=== PATIENT | male | born 1955 | race Caucasian/White ===

== ENCOUNTER 2017-07-22 13:46 | Inpatient (IN) | payer MEDICARE, BC ==
[2017-07-22] MEDS ORDERED: Zolpidem Tartrate 5 MG TAB PO PRN (17:52)
[2017-07-22] MEDS ORDERED: Nitroglycerin 0.4 MG TAB (25 Tab Bottle) SL PRN (17:52)
[2017-07-22] MEDS ORDERED: Dextrose 5% in Water 1,000 ML IV PRN (17:53)
[2017-07-22] MEDS ORDERED: Dextrose 50% Abboject 50 ML SYRINGE SLOW IVP PRN (17:53)
[2017-07-22] MEDS: Mometasone/Formoterol 60 PUFF AER INH SCH (18:36)
[2017-07-22] MEDS: Carvedilol 25 MG TAB PO SCH (20:45)
[2017-07-22] MEDS: Atorvastatin Calcium 40 MG TAB PO SCH (20:45)
[2017-07-22] MEDS: Lisinopril 5 MG TAB PO SCH (20:46)
[2017-07-22] MEDS: Polyethylene Glycol 3350 17 GM Packet PO SCH (20:46)
[2017-07-22] MEDS ORDERED: LISINOPRIL 2.5 MG PO SCH (21:00)
--- NOTE | 2017-07-23 00:12 | HP ---
DATE OF ADMISSION: 07/22/2017 CHIEF COMPLAINT: Improving acute on chronic systolic congestive heart failure for physical therapy. BRIEF HISTORY: This is a very pleasant overweight 61-year-old male, who was admitted to [facility] on 07/09/2017 with worsening shortness of breath and was diagnosed with acute on chronic congestive heart failure. He was started on IV diuretic therapy and has lost almost 50 poun ds. He is doing better, but is weak so he has been transferred here for therapy. He denies any ayesha st pain. He does have some dyspnea on exertion. He denies any fever or chills. He does have sleep apnea and does use his CPAP at night. Denies any nausea, vomiting or diarrhea. He is tolerating h is medications. PAST MEDICAL HISTORY: 1. Chronic systolic congestive heart failure. He states that his ejection fraction was 15% to 20% per Dr. Ruiz this visit. 2. Coronary artery disease. 3. Diabetes mellitus, type 2. 4. Hypertension. 5. Dyslipidemia. 6. Chronic obstructive pulmonary disease. 7. Morbid obesity. 8. Obstructive sleep apnea. 9. Gastroesophageal reflux disease. PAST SURGICAL HISTORY: 1. Coronary artery bypass grafting. 2. AICD placement. 3. Ankle surgery and hand surgery. ALLERGIES: No known drug allergies, but does have a problem in tolerating CARDURA. MEDICATIONS: He is being transferred here on the following medications: 1. Tylenol 500 mg q.6 hours p.r.n. 2. DuoNeb 3 mL q.6 hours routine. 3. Lipitor 80 mg daily. 4. Carvedilol 25 mg b.i.d. 5. Plavix 75 mg daily. 6. Lasix 40 mg daily. 7. Amaryl 4 mg daily. 8. Hydralazine 25 mg t.i.d. 9. Lactulose 60 mg t.i.d. p.r.n. constipation. 10. Dulera two puffs b.i.d., gargle after use. 11. Lisinopril 2.5 b.i.d. 12. Xarelto 15 mg daily. 13. Protonix 40 mg daily. 14. Aldactone 50 mg daily. 15. Ambien 5 mg at bedtime p.r.n. FAMILY HISTORY: Noncontributory to current admission. PSYCHOSOCIAL HISTORY: History of tobacco abuse. No alcohol or IV drug abuse. 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 REVIEW OF SYSTEMS: Cardiovascular system: Does complain of some dyspnea on exertion. He denies an y paroxysmal nocturnal dyspnea or orthopnea at present. Denies any chest pain or shortness of breat h. Respiratory system: Denies any chronic cough, expectoration or pleuritic type chest pain. Marissa rointestinal system: Denies any nausea, vomiting, diarrhea, constipation, hematemesis, melena, keara tochezia. Genitourinary system: Denies any frequency, urgency, dysuria or hematuria. Central nerv ous system: Generalized weakness. SHEENT: No difficulty with speech, vision, hearing or swallowin g. PHYSICAL EXAMINATION: GENERAL: Pleasant 61-year-old overweight male, resting comfortably, in no acute distress. He responds appropriately to questions. He is alert, awake, and oriented x3. VITAL SIGNS: He is afebrile. Heart rate is 70, respirations are 20, oxygen saturation is 95% on 2 liters, blood pressure is 110/72. HEENT: Normocephalic, atraumatic. Pupils are equally reactive to light and accommodation. NECK: No JVD, thyromegaly, cervical adenopathy, throat exudates or carotid bruits. CARDIOVASCULAR: S1 and S2 plus. Rate and rhythm regular. RESPIRATORY: Normal vesicular breath sounds heard in all lung lutz with decreased air entry at th e bases. ABDOMEN: Soft, obese, nontender, bowel sounds heard in all quadrants. EXTREMITIES: Trace pedal edema. Peripheral pulses are palpable. CENTRAL NERVOUS SYSTEM: Generalized weakness, otherwise nonfocal. LABORATORY VALUES: Sodium 138, potassium 4.4, BUN and creatinine are 29 and 1.41, blood sugars are 205, 206, 187, 171, 219. IMPRESSION: 1. Improving acute on chronic systolic congestive heart failure. 2. Ischemic cardiomyopathy, last ejection fraction according to the notes is 20% to 25%. Patient s tates that Dr. Ruiz told him it was 15%. 3. Coronary artery disease. 4. Hypertension. 5. Dyslipidemia. 6. Obstructive sleep apnea. 7. Morbid obesity. 8. Chronic kidney disease, stage 2. PLAN: 1. Continue current medications. 2. An 1800 calorie heart healthy ADA diet. 3. Accu-Cheks with sliding scale coverage. 4. Deep venous thrombosis prophylaxis. He is already on Xarelto 15 mg daily, which is an unusual d ose, but that is what he was on in the other facility as well. 5. Stress ulcer prophylaxis. 6. Decubitus precautions. 7. Consult PT and OT. 8. Routine laboratory values. 9. DNR status per patient's request. 10. No family at the bedside. 11. We will continue to follow this patient while he is here. 12. Estimated length of stay 10-14 days.
[2017-07-23 05:20] LABS: Band 1 % (5-11); Hemoglobin 16.4 g/dL (14.0-18.0); Lymphocytes 10 % (21-51); MDiff Complete? YES; Mean Corpuscular HGB CONC 31.6 g/dL (32.0-36.0); Mean Corpuscular Hemoglobin 28.7 pg (27.0-31.0); Mean Platelet Volume 7.6 fL (7.4-10.4); Monocytes 14 % (0-10); Neutrophil 73 % (42-75); PLT Morphology Comment Appears Adequate; Platelet Count 204 thou/uL (130-400); RBC Distribution Width 13.7 % (11.5-14.5); RBC Morphology Normal; Reactive Lymphocytes 2 % (0-10); White Blood Cell (WBC) Count 9.5 thou/uL (4.8-10.8)
[2017-07-23 05:28] LABS: Anion Gap 13 mmol/L (10-20); BUN (Urea Nitrogen) 32 mg/dL (8.4-25.7); Calc. Creatinine Clearance 93 mL/min (70-130); Calcium 9.9 mg/dL (7.8-10.44); Carbon Dioxide 28 mmol/L (23-31); Chloride 102 mmol/L (98-107); Estimated GFR-MDRD 41; Glucose 223 mg/dL (80-115); Potassium 4.4 mmol/L (3.5-5.1); Sodium 139 mmol/L (136-145)
[2017-07-23] MEDS: HumaLOG 300 UNITS/3 ML VIAL SC PRN ×4 (05:57→20:32)
[2017-07-23] MEDS: Mometasone/Formoterol 60 PUFF AER INH SCH ×2 (05:57→18:48)
[2017-07-23] MEDS: Spironolactone 25 MG TAB PO SCH (07:29)
[2017-07-23] MEDS ORDERED: Glimepiride 4 MG TAB PO SCH (08:00)
[2017-07-23] MEDS: Carvedilol 25 MG TAB PO SCH ×2 (08:29→20:31)
[2017-07-23] MEDS: Clopidogrel Bisulfate 75 MG TAB PO SCH (08:29)
[2017-07-23] MEDS: Lisinopril 5 MG TAB PO SCH ×2 (08:29→20:31)
[2017-07-23] MEDS: Furosemide 40 MG TAB PO SCH (08:29)
[2017-07-23] MEDS: Multivitamin W/ Minerals 1 TAB PO SCH (08:30)
[2017-07-23] MEDS: Rivaroxaban 10 MG TAB PO SCH (08:30)
[2017-07-23] MEDS: Polyethylene Glycol 3350 17 GM Packet PO SCH ×2 (08:30→20:32)
[2017-07-23] MEDS ORDERED: Glimepiride 2 MG TAB PO SCH (11:00)
--- NOTE | 2017-07-23 13:23 | PRG ---
DATE OF SERVICE: 07/23/2017 SUBJECTIVE: Mr. Goldstein is doing well. Denies any complaints. He tolerated a therapy. He is restin g with his CPAP. Denies any chest pain or shortness of breath. OBJECTIVE: VITAL SIGNS: He is afebrile, heart rate 72, respirations 24, oxygen saturation 95% on 2 liters, and blood pressure is 115/61. CARDIOVASCULAR: S1, S2 plus. RESPIRATORY: Normal vesicular breath sounds. ABDOMEN: Soft, obese, nontender, bowel sounds heard in all quadrants. EXTREMITIES: Trace edema. CENTRAL NERVOUS SYSTEM: Generalized weakness. LABORATORY VALUES: Sodium 139, potassium 4.4, BUN and creatinine is 32 and 1.7, blood sugars are 18 8, 223 and 152. White count is 9.5, H\T\H is 16.4 and 51.8. His creatinine is slightly worse than before. IMPRESSION: 1. Improving acute on chronic systolic congestive heart failure. 2. Worsening renal dysfunction. Continue to monitor creatinine. 3. Diabetes mellitus type 2. 4. Ischemic cardiomyopathy, last ejection fraction of 20-25%. 5. Obstructive sleep apnea. 6. Dyslipidemia. 7. Gastroesophageal reflux disease. PLAN: 1. Daily weights. 2. Recheck BMP and BNP in the morning. 3. May need to increase his diuretics depending upon his BNP, his weight, and his creatinine. 4. Continue physical therapy. 5. CPAP while dressing. 6. Accu-Cheks with sliding scale coverage. 7. Deep venous thrombosis and stress ulcer prophylaxis. 8. Decubitus precautions. 9. Nutritional support. 10. Discussed with patient in detail. All questions answered.
[2017-07-23] MEDS: Atorvastatin Calcium 40 MG TAB PO SCH (20:31)
[2017-07-24] MEDS: Mometasone/Formoterol 60 PUFF AER INH SCH ×2 (05:45→18:08)
[2017-07-24] MEDS: HumaLOG 300 UNITS/3 ML VIAL SC PRN (05:45)
[2017-07-24 06:04] LABS: Anion Gap 16 mmol/L (10-20); BUN (Urea Nitrogen) 31 mg/dL (8.4-25.7); Calc. Creatinine Clearance 86 mL/min (70-130); Calcium 9.9 mg/dL (7.8-10.44); Carbon Dioxide 26 mmol/L (23-31); Chloride 101 mmol/L (98-107); Estimated GFR-MDRD 38; Glucose 197 mg/dL (80-115); Potassium 4.8 mmol/L (3.5-5.1); Sodium 138 mmol/L (136-145)
[2017-07-24] MEDS: Glimepiride 2 MG TAB PO SCH (07:26)
[2017-07-24] MEDS: Acetaminophen 500 MG TAB PO PRN ×2 (07:27→20:41)
[2017-07-24] MEDS: Spironolactone 25 MG TAB PO SCH (07:27)
[2017-07-24] MEDS: Clopidogrel Bisulfate 75 MG TAB PO SCH (08:18)
[2017-07-24] MEDS: Lisinopril 5 MG TAB PO SCH ×2 (08:18→20:40)
[2017-07-24] MEDS: Carvedilol 25 MG TAB PO SCH ×2 (08:18→20:41)
[2017-07-24] MEDS: Furosemide 40 MG TAB PO SCH (08:18)
[2017-07-24] MEDS: Polyethylene Glycol 3350 17 GM Packet PO SCH ×2 (08:19→20:36)
[2017-07-24] MEDS: Multivitamin W/ Minerals 1 TAB PO SCH (08:19)
[2017-07-24] MEDS: Rivaroxaban 10 MG TAB PO SCH (08:19)
[2017-07-24 08:25] LABS: #Basophils 0.1 thou/uL (0.0-0.2); #Lymphocytes 0.9 thou/uL (1.20-3.40); #Monocytes 0.5 thou/uL (0.11-0.59); #Neutrophils 6.9 thou/uL (1.40-6.50); %Basophils 1.3 % (0.0-1.0); %Eosinophils 0.3 % (0.0-10.0); %Lymphocytes 10.7 % (21.0-51.0); %Monocytes 5.5 % (0.0-10.0); %Neutrophils 82.3 % (42.0-75.0); Hemoglobin 17.4 g/dL (14.0-18.0); Mean Corpuscular HGB CONC 31.3 g/dL (32.0-36.0); Mean Corpuscular Hemoglobin 28.6 pg (27.0-31.0); Mean Corpuscular Volume 91.2 fl (80.0-94.0); Mean Platelet Volume 7.9 fL (7.4-10.4); Platelet Count 205 thou/uL (130-400); RBC Distribution Width 14.1 % (11.5-14.5); Red Blood Cell (RBC) Count 6.11 mill/uL (4.70-6.10); White Blood Cell (WBC) Count 8.4 thou/uL (4.8-10.8)
--- NOTE | 2017-07-24 09:16 | RAD ---
CHEST 1 VIEW: HISTORY: Fever. COMPARISON: Chest 1 view 07/09/17. FINDINGS: Lungs are hypoinflated. Cardiac device is similar, although incompletely evaluated due to under pen etration. Cardiac silhouette is enlarged. No pneumothorax. No focal osseous abnormality. IMPRESSION: No acute intrathoracic abnormality. POS: [facility]
[2017-07-24 09:57] LABS: Bilirubin Negative (Negative); Blood, Urine Large (Negative); Clarity Clear (Clear); Glucose, Urine (Dipstick) Negative (Negative); Leukocyte Trace (Negative); Nitrite Negative (Negative); Protein, Urine (Dipstick) > or equal to 300 mg/dL (Neg-Trace); Specific Gravity, Urine 1.025 (1.005-1.030)
[2017-07-24 10:19] LABS: RBC/HPF 21-50 HPF (0-3)
[2017-07-24 10:20] LABS: Bacteria/HPF 2+ HPF (None Seen); Other Microscopic Description NO; Squamous Epithelial 0-3 HPF (0-3)
--- NOTE | 2017-07-24 13:28 | PRG ---
DATE OF SERVICE: 07/24/2017 SUBJECTIVE: Mr. Goldstein is doing well, but he did have a temperature of 102 this morning, it is back down to normal. He denies any chills. He denies any cough. He denies any GI or symptoms. He d enies any sores anywhere. I reviewed his laboratory values and nothing significant except mild wors ening of his renal function, weight is the same. OBJECTIVE: VITAL SIGNS: He is afebrile, heart rate is 71, respirations 20, and blood pressure is 138/70. CARDIOVASCULAR: S1, S2 plus. RESPIRATORY: Normal vesicular breath sounds. ABDOMEN: Soft, obese, nontender, bowel sounds heard in all quadrants. EXTREMITIES: Without cyanosis or clubbing. Trace edema. LABORATORY VALUES: Shows a white count of 8.4, H\T\H is 17.4 and 55.7. BNP is 190. Sodium 138, po tassium 4.9, BUN and creatinine 31 and 1.84. Blood sugars are 164, 222, and 189. IMPRESSION: 1. Chronic systolic congestive heart failure. 2. Obstructive sleep apnea. 3. Diabetes mellitus type 2. 4. Dyslipidemia. 5. Gastroesophageal reflux disease. 6. Morbid obesity. PLAN: 1. Continue current medications. 2. Await urine culture and blood culture. 3. His chest x-ray shows no acute intrathoracic abnormality. 4. DVT prophylaxis. 5. Decubitus precautions. 6. Stress ulcer prophylaxis. 7. Physical therapy. 8. Routine laboratory values.
[2017-07-24 16:50] LABS: Anion Gap 17 mmol/L (10-20); BUN (Urea Nitrogen) 31 mg/dL (8.4-25.7); Calc. Creatinine Clearance 80 mL/min (70-130); Calcium 9.3 mg/dL (7.8-10.44); Carbon Dioxide 25 mmol/L (23-31); Chloride 100 mmol/L (98-107); Estimated GFR-MDRD 35; Glucose 114 mg/dL (80-115); Potassium 4.6 mmol/L (3.5-5.1); Sodium 137 mmol/L (136-145)
[2017-07-24] MEDS: Atorvastatin Calcium 40 MG TAB PO SCH (20:41)
[2017-07-25] MEDS: Acetaminophen 500 MG TAB PO PRN (05:42)
[2017-07-25] MEDS: Mometasone/Formoterol 60 PUFF AER INH SCH ×2 (05:42→18:11)
[2017-07-25 06:07] LABS: Band 42 % (5-11); Hemoglobin 16.4 g/dL (14.0-18.0); Lymphocytes 14 % (21-51); MDiff Complete? YES; Mean Corpuscular HGB CONC 31.7 g/dL (32.0-36.0); Mean Corpuscular Hemoglobin 28.5 pg (27.0-31.0); Mean Corpuscular Volume 89.9 fl (80.0-94.0); Mean Platelet Volume 8.2 fL (7.4-10.4); Metamyelocyte 1 % (0-0); Monocytes 2 % (0-10); Myelocyte 1 % (0-0); Neutrophil 39 % (42-75); PLT Morphology Comment Appears Adequate; Platelet Count 168 thou/uL (130-400); RBC Morphology Normal; Reactive Lymphocytes 1 % (0-10); Red Blood Cell (RBC) Count 5.76 mill/uL (4.70-6.10); White Blood Cell (WBC) Count 7.5 thou/uL (4.8-10.8)
[2017-07-25] MEDS: Polyethylene Glycol 3350 17 GM Packet PO SCH ×2 (08:43→19:57)
[2017-07-25] MEDS: Lisinopril 5 MG TAB PO SCH ×2 (08:43→20:32)
[2017-07-25] MEDS: Rivaroxaban 10 MG TAB PO SCH (08:44)
[2017-07-25] MEDS: Carvedilol 25 MG TAB PO SCH ×2 (08:44→20:32)
[2017-07-25] MEDS: Furosemide 40 MG TAB PO SCH (08:44)
[2017-07-25] MEDS: Glimepiride 2 MG TAB PO SCH (08:46)
[2017-07-25] MEDS: Spironolactone 25 MG TAB PO SCH (08:46)
[2017-07-25] MEDS: Multivitamin W/ Minerals 1 TAB PO SCH (08:46)
[2017-07-25] MEDS: Clopidogrel Bisulfate 75 MG TAB PO SCH (08:46)
--- NOTE | 2017-07-25 11:06 | PRG ---
DATE OF SERVICE: 07/25/2017 SUBJECTIVE: Mr. Goldstein is doing well. He is still having on and off temperature with sweats, but no cough, no GI or symptoms. His chest x-ray was normal. Urine cultures and blood cultures are pe nding. His white count is normal. OBJECTIVE: VITAL SIGNS: He is afebrile, T-max 100.6, heart rate 79, respirations 20, oxygen saturation 92%, an d blood pressure is 138/70. CARDIOVASCULAR SYSTEM: S1, S2 plus. RESPIRATORY SYSTEM: Normal vesicular breath sounds. ABDOMEN: Soft, obese, nontender, bowel sounds heard in all quadrants. EXTREMITIES: Without cyanosis or clubbing. Trace edema. CENTRAL NERVOUS SYSTEM: Generalized weakness. LABORATORY VALUES: Creatinine is 1.88. White count is 7.5, H\T\H is 16.4 and 51.8, 39% neutrophils , but he has 42% bands. IMPRESSION: 1. Fever, possibly viral. We will await urine culture and blood cultures. His chest x-ray is norm al. 2. Chronic systolic congestive heart failure, well controlled. BNP is only 196. I again reinforce d a need for him to limit his fluid intake to about 1500 mL for 24 hours. 3. Improving renal dysfunction. Creatinine is 1.88, it was 1.88 yesterday. 4. Obesity. 5. Obstructive sleep apnea. 6. Diabetes mellitus type 2. 7. Gastroesophageal reflux disease. 8. Flat affect with depression. PLAN: 1. Continue current medications. 2. Nutritional support. 3. DVT prophylaxis. 4. Decubitus precautions. 5. Await cultures. 6. Hold off on empiric antibiotics. 7. Empiric citalopram to help with his depression. Discussed with patient in detail. Dr. Herrera on-call this weekend. No family at the bedside.
[2017-07-25] MEDS: Vancomycin HCl 1 GM in Sodium Chloride 0.9% 250 ML 250 ML IVPB SCH ×2 (13:27→15:13)
[2017-07-25] MEDS ORDERED: Sodium Chloride 0.9% 20 ML ONE (15:11)
[2017-07-25] MEDS: HumaLOG 300 UNITS/3 ML VIAL SC PRN (16:34)
[2017-07-25] MEDS: Atorvastatin Calcium 40 MG TAB PO SCH (20:32)
[2017-07-26] MEDS: Vancomycin HCl 1 GM in Sodium Chloride 0.9% 250 ML 250 ML IVPB SCH ×2 (05:58→07:32)
[2017-07-26] MEDS: Mometasone/Formoterol 60 PUFF AER INH SCH ×2 (06:01→18:27)
[2017-07-26] MEDS: Spironolactone 25 MG TAB PO SCH (07:33)
[2017-07-26] MEDS: Glimepiride 2 MG TAB PO SCH (07:33)
--- NOTE | 2017-07-26 08:45 | PRG ---
DATE OF SERVICE: 07/26/2017 SUBJECTIVE: The patient feels well with no further fever, decreased cough. Slept well. No shortne ss of breath. Walking in the [place] with nurses. No chest pain or palpitations. OBJECTIVE: VITAL SIGNS: Blood pressure 119/63, temperature 97.8, pulse 80, respirations 18, O2 sats 92% on emely m air, blood pressure is however low at 98/52. LUNGS: Clear. CARDIAC EXAMINATION: Shows an irregular rhythm. ABDOMEN: Obese, nontender. SKIN and EXTREMITIES: Show 1+ edema. IMAGING: Blood cultures shows 2 out of 2 growing Enterococcus faecalis with no evidence of vancomyc in-resistant. ASSESSMENT: 1. Enterococcal bacteremia and possible sepsis and endocarditis responding to IV vancomycin with a former pharmacy monitoring doses. 2. Ischemic cardiomyopathy and significant congestive heart failure, improving greatly with IV diur etics, but now with hypotension, possibly related to sepsis or over diuresis. 3. Obstructive sleep apnea, doing well on CPAP with no difficulty breathing last night. 4. Type 2 diabetes, well controlled with Accu-Cheks ranging 83-152. PLAN: 1. Continue vancomycin. Check trough level tomorrow. 2. Obtain CRPS, sed rate baseline. 3. Order transesophageal echo to evaluate for vegetations on AICD. 4. Obtain lactic acid level to monitoring for sepsis, because of hypotension. 5. Discontinue furosemide and hydralazine and monitor blood pressure. 6. Consider transfer back to [facility] if continued hypotensive.
[2017-07-26 09:05] LABS: Anion Gap 12 mmol/L (10-20); BUN (Urea Nitrogen) 33 mg/dL (8.4-25.7); CRP (Inflammatory) 4.67 mg/dL (= or < 0.5); Calc. Creatinine Clearance 91 mL/min (70-130); Calcium 8.9 mg/dL (7.8-10.44); Carbon Dioxide 27 mmol/L (23-31); Chloride 102 mmol/L (98-107); Estimated GFR-MDRD 40; Glucose 124 mg/dL (80-115); Potassium 4.2 mmol/L (3.5-5.1); Sodium 137 mmol/L (136-145)
[2017-07-26] MEDS: Clopidogrel Bisulfate 75 MG TAB PO SCH (09:20)
[2017-07-26] MEDS: Rivaroxaban 10 MG TAB PO SCH (09:20)
[2017-07-26] MEDS: Lisinopril 5 MG TAB PO SCH ×2 (09:21→20:42)
[2017-07-26] MEDS: Carvedilol 25 MG TAB PO SCH ×2 (09:21→20:41)
[2017-07-26] MEDS: Multivitamin W/ Minerals 1 TAB PO SCH (09:21)
[2017-07-26] MEDS: Polyethylene Glycol 3350 17 GM Packet PO SCH ×2 (09:25→20:31)
[2017-07-26 10:04] LABS: Hemoglobin 15.7 g/dL (14.0-18.0); Mean Corpuscular Hemoglobin 28.4 pg (27.0-31.0); Mean Corpuscular Volume 88.9 fl (80.0-94.0); Mean Platelet Volume 8.1 fL (7.4-10.4); Platelet Count 157 thou/uL (130-400); RBC Distribution Width 13.8 % (11.5-14.5); Red Blood Cell (RBC) Count 5.51 mill/uL (4.70-6.10); White Blood Cell (WBC) Count 6.7 thou/uL (4.8-10.8)
[2017-07-26 18:47] LABS: Band 8 % (5-11); Eosinophils 5 % (0-10); Lymphocytes 28 % (21-51); MDiff Complete? YES; Monocytes 13 % (0-10); Neutrophil 46 % (42-75); PLT Morphology Comment Appears Adequate; RBC Morphology Normal
[2017-07-26] MEDS: Atorvastatin Calcium 40 MG TAB PO SCH (20:41)
[2017-07-27] MEDS: Vancomycin HCl 1 GM in Sodium Chloride 0.9% 250 ML 250 ML IVPB SCH ×4 (01:25→19:14)
[2017-07-27] MEDS: HumaLOG 300 UNITS/3 ML VIAL SC PRN ×3 (05:48→20:29)
[2017-07-27 05:50] LABS: Anion Gap 17 mmol/L (10-20); BUN (Urea Nitrogen) 30 mg/dL (8.4-25.7); Calc. Creatinine Clearance 104 mL/min (70-130); Calcium 8.6 mg/dL (7.8-10.44); Carbon Dioxide 20 mmol/L (23-31); Chloride 104 mmol/L (98-107); Estimated GFR-MDRD 47; Glucose 176 mg/dL (80-115); Potassium 4.3 mmol/L (3.5-5.1); Sodium 137 mmol/L (136-145)
[2017-07-27] MEDS: Mometasone/Formoterol 60 PUFF AER INH SCH ×2 (05:50→18:20)
[2017-07-27 06:06] LABS: Band 11 % (5-11); Hemoglobin 14.7 g/dL (14.0-18.0); Lymphocytes 33 % (21-51); MDiff Complete? YES; Mean Corpuscular HGB CONC 32.9 g/dL (32.0-36.0); Mean Corpuscular Hemoglobin 29.4 pg (27.0-31.0); Mean Corpuscular Volume 89.4 fl (80.0-94.0); Mean Platelet Volume 9.1 fL (7.4-10.4); Metamyelocyte 2 % (0-0); Monocytes 9 % (0-10); Neutrophil 45 % (42-75); PLT Morphology Comment Appears Adequate; Platelet Count 204 thou/uL (130-400); RBC Distribution Width 14.2 % (11.5-14.5); RBC Morphology Normal; Red Blood Cell (RBC) Count 4.99 mill/uL (4.70-6.10); White Blood Cell (WBC) Count 6.8 thou/uL (4.8-10.8)
[2017-07-27] MEDS: Glimepiride 2 MG TAB PO SCH (08:17)
[2017-07-27] MEDS: Carvedilol 25 MG TAB PO SCH ×2 (08:18→20:28)
[2017-07-27] MEDS: Spironolactone 25 MG TAB PO SCH (08:18)
[2017-07-27] MEDS: Multivitamin W/ Minerals 1 TAB PO SCH (08:18)
[2017-07-27] MEDS: Clopidogrel Bisulfate 75 MG TAB PO SCH (08:18)
[2017-07-27] MEDS: Rivaroxaban 10 MG TAB PO SCH (08:19)
[2017-07-27] MEDS: Lisinopril 5 MG TAB PO SCH ×2 (08:20→20:29)
[2017-07-27] MEDS: Polyethylene Glycol 3350 17 GM Packet PO SCH ×2 (08:22→20:23)
[2017-07-27] MEDS: Atorvastatin Calcium 40 MG TAB PO SCH (20:28)
--- NOTE | 2017-07-27 22:21 | PRG ---
DATE OF SERVICE: 07/27/[address] Merry Brenner. SUBJECTIVE: The patient feels well with only complaints of fatigue, but no fever, cough, or shortne ss of breath. He has been up visiting with family, had no pain, chest pain or palpitations. OBJECTIVE: VITAL SIGNS: Blood pressure is 118/56, temperature 96, pulse 70, respirations 22, O2 sa ts 93% on room air. LABORATORY DATA: White count 6800, hematocrit 44, and hemoglobin 14. Accu-Cheks range from 171 to 209. Vancomycin trough level is therapeutic at 17. ASSESSMENT: 1. Enterococcal bacteremia with no evidence of sepsis or endocarditis, on therapeutic vancomycin wi th transesophageal echocardiogram ordered. 2. Ischemic cardiomyopathy, congestive heart failure, well compensated. No hypotension. Only comp lains of fatigue. 3. Obstructive sleep apnea, compliant CPAP. 3. Type 2 diabetes with decreased controlled, possibly due to infection. PLAN: Continue vancomycin. Await results of transesophageal echo. Continue off furosemide and hyd ralazine.
[2017-07-28 05:36] LABS: Anion Gap 19 mmol/L (10-20); BUN (Urea Nitrogen) 25 mg/dL (8.4-25.7); Calc. Creatinine Clearance 104 mL/min (70-130); Calcium 9.1 mg/dL (7.8-10.44); Carbon Dioxide 20 mmol/L (23-31); Chloride 104 mmol/L (98-107); Estimated GFR-MDRD 47; Glucose 168 mg/dL (80-115); Potassium 4.6 mmol/L (3.5-5.1); Sodium 138 mmol/L (136-145)
[2017-07-28] MEDS: HumaLOG 300 UNITS/3 ML VIAL SC PRN ×2 (05:55→11:31)
[2017-07-28] MEDS: Mometasone/Formoterol 60 PUFF AER INH SCH ×2 (05:55→18:06)
[2017-07-28 05:59] LABS: Band 20 % (5-11); Eosinophils 2 % (0-10); Hemoglobin 15.1 g/dL (14.0-18.0); Lymphocytes 26 % (21-51); MDiff Complete? YES; Mean Corpuscular HGB CONC 31.5 g/dL (32.0-36.0); Mean Corpuscular Hemoglobin 28.3 pg (27.0-31.0); Mean Corpuscular Volume 89.9 fl (80.0-94.0); Monocytes 3 % (0-10); Neutrophil 49 % (42-75); PLT Morphology Comment Appears Adequate; Platelet Count 190 thou/uL (130-400); RBC Distribution Width 14.2 % (11.5-14.5); RBC Morphology Normal; Red Blood Cell (RBC) Count 5.34 mill/uL (4.70-6.10); White Blood Cell (WBC) Count 7.3 thou/uL (4.8-10.8)
[2017-07-28] MEDS: Spironolactone 25 MG TAB PO SCH (07:25)
[2017-07-28] MEDS: Glimepiride 2 MG TAB PO SCH (07:25)
[2017-07-28] MEDS: Carvedilol 25 MG TAB PO SCH ×2 (08:12→20:43)
[2017-07-28] MEDS: Clopidogrel Bisulfate 75 MG TAB PO SCH (08:12)
[2017-07-28] MEDS: Lisinopril 5 MG TAB PO SCH ×2 (08:13→20:42)
[2017-07-28] MEDS: Polyethylene Glycol 3350 17 GM Packet PO SCH ×2 (08:13→20:42)
[2017-07-28] MEDS: Multivitamin W/ Minerals 1 TAB PO SCH (08:13)
[2017-07-28] MEDS: Rivaroxaban 10 MG TAB PO SCH (08:13)
[2017-07-28] MEDS: Vancomycin HCl 1 GM in Sodium Chloride 0.9% 250 ML 250 ML IVPB SCH ×2 (13:24)
--- NOTE | 2017-07-28 13:47 | PRG ---
DATE OF SERVICE: 07/28/2017 SUBJECTIVE: Mr. Goldstein complains of some nasal stuffiness; otherwise, he is doing okay. His blood cultures 2/2 were positive for Enterococcus. He was started on vancomycin. The concern is possible endocarditis vs Urosepsis, so will check on urine cultures and if neg, will talk to Dr. Ruiz about scheduling a JAIRO. He states that he feels like he is not urinating as much as he was before, but reviewed his weights and he actually has dropped about a pound. It most likely is due to him limiting his p.o. intake. He was drinking close to 3-4 liters a day and now it is about 1.5 liters. OBJECTIVE: VITAL SIGNS: He is afebrile, heart rate is 75, respirations are 18, and oxygen saturation is 97%, blood pressure is 127/83. HEENT: Normocephalic, atraumatic. CARDIOVASCULAR SYSTEM: S1, S2 plus. RESPIRATORY SYSTEM: Normal vesicular breath sounds. ABDOMEN: Soft, obese, nontender, bowel sounds heard in all quadrants. EXTREMITIES: Trace edema. LABORATORY VALUES: White count is 7.3, H\T\H is 15.1 and 48. Chemistry shows sodium of 138, potassium of 4.6, BUN and creatinine 25 and 1.52. Blood sugars are 209, 151, 162. IMPRESSION: 1. Chronic systolic congestive heart failure. 2. Enterococcus bacteremia, 2 out of 2. 3. Diabetes mellitus type 2. 4. Obstructive sleep apnea. 5. Hypertension. 6. Dyslipidemia. 7. Obesity. 8. Depression. PLAN: 1. 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 2. Continue vancomycin, pharmacy to adjust dosing. 3. DVT prophylaxis. 4. Decubitus precautions. 5. Stress ulcer prophylaxis. 6. Routine laboratory values. 7. Discussed with the patient in detail and all questions answered. MTDD
[2017-07-28] MEDS: Atorvastatin Calcium 40 MG TAB PO SCH (20:42)
[2017-07-29] MEDS: HumaLOG 300 UNITS/3 ML VIAL SC PRN ×2 (05:41→11:34)
[2017-07-29 06:04] LABS: Hemoglobin 15.1 g/dL (14.0-18.0); Platelet Count 196 thou/uL (130-400)
[2017-07-29] MEDS: Mometasone/Formoterol 60 PUFF AER INH SCH ×2 (06:04→18:07)
[2017-07-29 06:14] LABS: Vancomycin, Trough 24.9 ug/mL
[2017-07-29] MEDS: Vancomycin HCl 1 GM in Sodium Chloride 0.9% 250 ML 250 ML IVPB SCH ×2 (06:40→07:38)
[2017-07-29] MEDS: Spironolactone 25 MG TAB PO SCH (07:37)
[2017-07-29] MEDS: Glimepiride 2 MG TAB PO SCH (07:37)
[2017-07-29] MEDS: Lisinopril 5 MG TAB PO SCH ×2 (08:36→20:50)
[2017-07-29] MEDS: Carvedilol 25 MG TAB PO SCH ×2 (08:36→20:50)
[2017-07-29] MEDS: Clopidogrel Bisulfate 75 MG TAB PO SCH (08:36)
[2017-07-29] MEDS: Multivitamin W/ Minerals 1 TAB PO SCH (08:37)
[2017-07-29] MEDS: Rivaroxaban 10 MG TAB PO SCH (08:37)
[2017-07-29] MEDS: Polyethylene Glycol 3350 17 GM Packet PO SCH ×2 (08:38→20:49)
--- NOTE | 2017-07-29 13:23 | PRG ---
DATE OF SERVICE: 07/29/2017 SUBJECTIVE: Mr. Goldstein is doing the same. Denies any complaints, resting comfortably. OBJECTIVE: VITAL SIGNS: He is afebrile, heart rate is 74, respirations are 20, oxygen saturation is 93%, blood pressure 122/69. CARDIOVASCULAR: S1, S2 plus. RESPIRATORY: Normal vesicular breath sounds. ABDOMEN: Soft, obese, nontender, bowel sounds heard in all quadrants. EXTREMITIES: Trace edema. His weight is 323 pounds, it was 316 yesterday. I am not sure how accurate this reading is. Also d iscussed with Dr. Ruiz about the Enterococcus and the possible validity of endocarditis and he s aid that it is pretty rare to see Enterococcus, but it is possible. Mr. Goldstein was supposed to get a urine culture, but unfortunately just urinalysis was done and it did show full field WBC and bacter ia, so I am going to order a urine culture. Await the results before I put him through an invasive procedure like a JAIRO. We will have him recheck his weight as well. IMPRESSION: 1. Chronic systolic congestive heart failure. 2. Fever with enterococcal bacteremia, possible urosepsis versus other source. 3. Obesity. 4. Obstructive sleep apnea. 5. Improving renal function. 6. Diabetes mellitus type 2. 7. Hypertension. PLAN: 1. Continue current medications. 2. Urine culture. 3. Hold off on JAIRO. 4. Continue vancomycin. 5. Deep venous thrombosis prophylaxis. 6. Decubitus precautions. 7. Stress ulcer prophylaxis. 8. Routine laboratory values. 9. I discussed with the patient in detail. 10. Recheck weight and if it is confirmed that he has a 7 pound weight gain, then we will increase his diuretics.
[2017-07-29] MEDS: Atorvastatin Calcium 40 MG TAB PO SCH (20:50)
[2017-07-30 05:51] LABS: #Basophils 0.1 thou/uL (0.0-0.2); #Eosinphils 0.4 thou/uL (0.0-0.7); #Lymphocytes 2.2 thou/uL (1.20-3.40); #Monocytes 0.7 thou/uL (0.11-0.59); #Neutrophils 4.9 thou/uL (1.40-6.50); %Basophils 1.8 % (0.0-1.0); %Eosinophils 4.3 % (0.0-10.0); %Lymphocytes 26.1 % (21.0-51.0); %Monocytes 8.8 % (0.0-10.0); Mean Corpuscular HGB CONC 32.7 g/dL (32.0-36.0); Mean Corpuscular Hemoglobin 29.3 pg (27.0-31.0); Mean Corpuscular Volume 89.6 fl (80.0-94.0); Mean Platelet Volume 7.6 fL (7.4-10.4); Platelet Count 203 thou/uL (130-400); RBC Distribution Width 14.3 % (11.5-14.5); Red Blood Cell (RBC) Count 4.78 mill/uL (4.70-6.10); White Blood Cell (WBC) Count 8.3 thou/uL (4.8-10.8)
[2017-07-30] MEDS: Mometasone/Formoterol 60 PUFF AER INH SCH ×2 (05:56→19:03)
[2017-07-30 05:58] LABS: Anion Gap 12 mmol/L (10-20); BUN (Urea Nitrogen) 25 mg/dL (8.4-25.7); Calc. Creatinine Clearance 119 mL/min (70-130); Calcium 8.9 mg/dL (7.8-10.44); Carbon Dioxide 22 mmol/L (23-31); Chloride 109 mmol/L (98-107); Estimated GFR-MDRD 54; Glucose 146 mg/dL (80-115); Potassium 4.4 mmol/L (3.5-5.1); Sodium 139 mmol/L (136-145)
[2017-07-30] MEDS ORDERED: Vancomycin HCl 1 GM in Sodium Chloride 0.9% 250 ML 250 ML IVPB SCH ×2 (08:00→09:00)
[2017-07-30] MEDS: Polyethylene Glycol 3350 17 GM Packet PO SCH ×2 (08:33→21:28)
[2017-07-30] MEDS: Rivaroxaban 10 MG TAB PO SCH (08:33)
[2017-07-30] MEDS: Lisinopril 5 MG TAB PO SCH ×2 (08:34→21:27)
[2017-07-30] MEDS: Multivitamin W/ Minerals 1 TAB PO SCH (08:34)
[2017-07-30] MEDS: Carvedilol 25 MG TAB PO SCH ×2 (08:34→21:27)
[2017-07-30] MEDS: Spironolactone 25 MG TAB PO SCH (08:35)
[2017-07-30] MEDS: Clopidogrel Bisulfate 75 MG TAB PO SCH (08:35)
[2017-07-30] MEDS: Glimepiride 2 MG TAB PO SCH (08:35)
--- NOTE | 2017-07-30 13:29 | PRG ---
DATE OF SERVICE: 07/30/2017 SUBJECTIVE: Mr. Goldstein is doing well. Denies any complaints, resting comfortably, tolerating therap y. No fever or chills. OBJECTIVE: VITAL SIGNS: He is afebrile, heart rate is 78, respirations are 18, blood pressure is 139/84. CARDIOVASCULAR: S1, S2 plus. RESPIRATORY: Normal vesicular breath sounds. ABDOMEN: Soft, obese, nontender, bowel sounds heard in all quadrants. EXTREMITIES: Trace edema. LABORATORY VALUES: Urine culture is pending. Sodium 139, potassium 4.4, BUN and creatinine 25 and 1.34. Blood sugars are 112, 141, 155. White count is 8.3, H\T\H is 14 and 42.8, platelet count 203 . IMPRESSION: 1. Chronic systolic congestive heart failure. 2. Enterococcus bacteremia, possibly related to urinary tract infection. 3. Diabetes mellitus type 2. 4. Hypertension. 5. Dyslipidemia. 6. Obstructive sleep apnea. 7. Improving depression. PLAN: 1. Continue current medications. 2. Resume Lasix 20 mg daily. 3. Daily weights. 4. DVT and stress ulcer prophylaxis. 5. Decubitus precautions. 6. Routine laboratory values. 7. Physical therapy. 8. Accu-Cheks with sliding scale coverage. 9. Switch him from vancomycin to oral amoxicillin. Discussed with patient in detail and all questions answered.
[2017-07-30] MEDS: AMOXicillin 500 MG CAP PO SCH ×2 (14:27→21:28)
[2017-07-30] MEDS ORDERED: AMOXicillin 250 MG CAP ONE (15:34)
[2017-07-30] MEDS: Atorvastatin Calcium 40 MG TAB PO SCH (21:27)
[2017-07-31 05:21] LABS: Hemoglobin 14.1 g/dL (14.0-18.0); Platelet Count 214 thou/uL (130-400)
[2017-07-31] MEDS: Mometasone/Formoterol 60 PUFF AER INH SCH (05:58)
[2017-07-31 06:06] VITALS: BMI 40.6
[2017-07-31 07:55] VITALS: TEMP 97.4
[2017-07-31] MEDS: Multivitamin W/ Minerals 1 TAB PO SCH (08:37)
[2017-07-31] MEDS: Spironolactone 25 MG TAB PO SCH (08:37)
[2017-07-31] MEDS: Glimepiride 2 MG TAB PO SCH (08:37)
[2017-07-31] MEDS: Clopidogrel Bisulfate 75 MG TAB PO SCH (08:38)
[2017-07-31] MEDS: Carvedilol 25 MG TAB PO SCH (08:38)
[2017-07-31] MEDS: Lisinopril 5 MG TAB PO SCH (08:38)
[2017-07-31] MEDS: Rivaroxaban 10 MG TAB PO SCH (08:39)
[2017-07-31] MEDS: Polyethylene Glycol 3350 17 GM Packet PO SCH (08:41)
[2017-07-31] MEDS ORDERED: Furosemide 20 MG TAB PO SCH (09:00)
[2017-07-31 13:10] VITALS: BP 166/95
--- NOTE | 2017-07-31 13:47 | DIS ---
DATE OF ADMISISON: 07/22/2017 DATE OF DISCHARGE: 07/31/2017 PRINCIPAL DIAGNOSIS: Chronic diastolic congestive heart failure. SECONDARY DIAGNOSES: 1. Obstructive sleep apnea. 2. Ischemic cardiomyopathy, ejection fraction of 20%-25% per documentation, but patient states he w as told it was 15%-20%. 3. Coronary artery disease. 4. Diabetes mellitus type 2. 5. Hypertension. 6. Dyslipidemia. 7. Chronic obstructive pulmonary disease. 8. Morbid obesity. 9. Gastroesophageal reflux disease. 10. Depression. 11. Enterococcal bacteremia, likely secondary to urinary tract infection. COMPLICATIONS: None. ADVERSE REACTIONS: None. PROCEDURES: None. CONSULTATIONS: Physical therapy and occupational therapy. HOSPITAL COURSE: The patient was admitted on 07/22/2017 with improving acute on chronic diastolic c ongestive heart failure for therapy. He did well with therapy. He had a flat affect. He was start ed on citalopram, seems to be helping. He has also been restarted back on his Lasix once his renal function has returned to normal. His weight shows that he has gained some weight here, but clinical ly he states that he feels better. He is actually off his oxygen. He is ambulating in the hallways about 200-300 feet without any issues, and he has been just started back on his Lasix. He did grow Enterococcus and initially it was felt that it may be an endocarditis, but I discussed with Dr. Heike roper, and he said it is pretty unusual and he felt it was most likely due to his Rosales catheter. A urine culture was ordered by me, but unfortunately it was not done. Urinalysis did show 2+ bacteri a and 10-20 WBCs. He was started on vancomycin and he did well. He was switched to oral amoxicilli n and a repeat urine culture was ordered which is pending. He has been doing well on amoxicillin, s o he was deemed stable for discharge. PHYSICAL EXAMINAITON: VITAL SIGNS: On the day of discharge, he is afebrile, heart rate is 72, respirations 20, oxygen sat uration is 94% on room air, blood pressure 122/69. HEENT: Normocephalic, atraumatic. Pupils equal and reactive to light and accommodation. Extraocul ar muscles intact. No JVD, thyromegaly, cervical adenopathy, throat exudates or carotid bruits. CARDIOVASCULAR: S1, S2 plus. RESPIRATORY: Normal vesicular breath sounds. ABDOMEN: Soft, obese, nontender, bowel sounds heard in all quadrants. EXTREMITIES: Without cyanosis or clubbing. Trace edema. Peripheral pulses are palpable. CENTRAL NERVOUS SYSTEM: Grossly nonfocal. LABORATORY VALUES: Creatinine is 1.28. Blood sugars are 137, 141, 138 and 157. His H\T\H is 14.1 and 44.7. DISCHARGE MEDICATIONS: All have been sent to his pharmacy, [facility] in [place]. 1. Amoxicillin 500 mg q.8 hours for 7 more days. 2. Lipitor 80 mg daily. 3. Carvedilol 25 mg b.i.d. 4. Celexa 20 mg daily. 5. Plavix 75 mg daily. 6. Lasix 40 mg daily. 7. Amaryl 4 mg daily. 8. Hydralazine 25 mg t.i.d. 9. Lisinopril 2.5 mg b.i.d. 10. Dulera 2 puffs b.i.d. gargle after use. 11. Xarelto 15 mg daily. 12. Aldactone 50 mg daily. 13. Lasix 40 mg daily. 14. Zantac 150 mg daily. DIET: An 1800 calorie Heart healthy ADA diet. ACTIVITY: As tolerated. He used his nocturnal CPAP, breathing treatments as needed. He is to follow up with his primary car e physician, Dr. Juares in 3-5 days. He is to call us with any questions or concerns. As stated pre scriptions have been sent to [facility] in [place]. Total time spent on this discharge 40 minutes. He remains a DNR.
== END 2017-07-31 17:44 | disposition home or self-care (01) | DRG 291 ==
LOC: NAV ACUTE 13:46
PROVIDERS: ADMIT Internal Medicine; ATTEND Internal Medicine
DX: I13.0 Hypertensive heart and chronic kidney disease with heart failure and stage 1 through stage 4 chronic kidney disease, or unspecified chronic kidney disease (principal); I50.23 Acute on chronic systolic (congestive) heart failure; R78.81 Bacteremia; Z95.1 Presence of aortocoronary bypass graft; Z68.41 Body mass index [BMI] 40.0-44.9, adult; N39.0 Urinary tract infection, site not specified; J44.9 Chronic obstructive pulmonary disease, unspecified; I25.10 Atherosclerotic heart disease of native coronary artery without angina pectoris; E11.9 Type 2 diabetes mellitus without complications; G47.33 Obstructive sleep apnea (adult) (pediatric); I25.5 Ischemic cardiomyopathy; N18.2 Chronic kidney disease, stage 2 (mild); E66.01 Morbid (severe) obesity due to excess calories; F32.9 Major depressive disorder, single episode, unspecified; K21.9 Gastro-esophageal reflux disease without esophagitis; Z66 Do not resuscitate; Z87.891 Personal history of nicotine dependence; Z95.810 Presence of automatic (implantable) cardiac defibrillator; Z88.8 Allergy status to other drugs, medicaments and biological substances
CPT/HCPCS: 36415; 36416; 71010; 80048; 80202; 81001; 82565; 83605; 83880; 85014; 85018; 85025; 85049; 85652; 86140; 87040; 87077; 87086; 87149; 87186; A4216; J3370; J7050; J7620